=== PATIENT | female | born 1935 | race Caucasian/White ===

== ENCOUNTER 2016-10-23 17:01 | Inpatient (IN) | payer OTHER, BC ==
[~2016-10-23] VITALS: Ht 160 cm; Wt 127.7 kg
[~2016-10-23 17:01] MED LIST: ALPRAZOLAM0.25 MG PO; ASPIRIN81 M1 PO; ASPIRIN81 M2 PO; Bactrim,Septra DS 80 PO; CENTRUM ULTRA1 EAC1 PO; COUMADIN,JANTOVE5 MG PO; COUMADIN,JANTOVE6 MG PO; COUMADIN5 MG PO; COUMADIN6 MG PO; Combivent IH; Coumadin PO; DILTIAZEM 24HR120 MG PO; FUROSEMIDE40 MG PO; GLUCOPHAGE500 MG PO; LASIX40 MG PO; LETROZOLE2.5 MG PO; LIDOCAINE700 MG TD; LIDODERM700 MG TP; LIPITOR40 MG PO; LO-DOSE ASPIRIN81 M1 PO; LONITEN2.5 MG PO; LOPRESSOR100 M1 PO; LOVENOX80 MG/0.8 SC; METFORMIN HCL500 MG PO; METHIMAZOLE5 MG PO; METOPROLOL TART50 MG PO; MINOXIDIL2.5 MG PO; NITROSTAT0.4 MG SL; Nitrostat,NitroQuick SL; OXYCODONE-ACET1 EACH PO; OXYCODONE10 MG PO; TOPROL XL50 MG PO; WYGESIC,DARV1 TABLET PO; XANAX0.25 MG PO; ZITHROMAX Z-PA250 MG PO
[2016-10-23 20:41] LABS: HEMATOCRIT 34.5 % (36.0-46.0); MCH 27.6 PG (29.0-34.0); MCHC 31.6 G/DL (30.0-36.0); MCV 87.3 FL (83-99); MEAN PLAT.VOLUME 11.3 uM^3 (9.5-12.4); PLATELET COUNT 184 K/uL (156-360); RBC DIS.WIDTH-CV 14.2 % (11.8-14.6); RBC DIS.WIDTH-SD 44.5 % (39-53); RED BLOOD COUNT 3.95 M/uL (3.80-5.20)
[2016-10-23 20:50] LABS: WHITE BLOOD COUNT 16.4 K/uL (4.1-10.2)
[2016-10-23 20:53] LABS: INTER. NORMALIZED RATIO 3.1
[2016-10-23 20:56] LABS: CHLORIDE 111 mEq/L (99-109); POTASSIUM 4.7 mEq/L (3.7-5.4); SODIUM 142 mEq/L (136-147)
[2016-10-23 20:58] LABS: GLUCOSE 196 mg/dL (70-99)
[2016-10-23 21:00] LABS: ANION GAP 11 MEQ/L (2-14)
[2016-10-23 21:02] LABS: GFR ESTIMATE (CALCULATED) > 59 mL/min/
[2016-10-23 21:03] LABS: UREA NITROGEN (BUN) 18 mg/dL (9-23)
[2016-10-23] MEDS ORDERED: METFORMIN HCL500 M1 PO (22:20)
[2016-10-23] MEDS ORDERED: COUMADIN5 MG PO (22:21)
[2016-10-23] MEDS ORDERED: VITAMIN D-3 401 EACH PO (22:21)
[2016-10-23] MEDS ORDERED: B-121000 MC2 PO (22:22)
[2016-10-23] MEDS ORDERED: CENTRUM SILVER1 EAC3 PO (22:22)
[2016-10-23] MEDS ORDERED: NORCO 7.5/321 TABLET PO (22:23)
[2016-10-23] MEDS ORDERED: VESICARE5 MG PO (22:23)
[2016-10-23] MEDS ORDERED: TOPROL XL100 MG PO (22:24)
[2016-10-24 03:24] VITALS: BP 113/48
[2016-10-24 03:49] VITALS: BP 113/48
[2016-10-24 07:23] VITALS: BP 123/59
[2016-10-24 11:00] LABS: ADD MIUA? YES; BILIRUBIN NEGATIVE; BLOOD SMALL; COLOR AMBER ((YELLOW)); GLUCOSE (STRIP) NEGATIVE; KETONES 5; LEUKOCYTES NEGATIVE; NITRITE NEGATIVE; PROTEIN (STRIP) 30; SPECIFIC GRAVITY 1.023 (1.000-1.030)
[2016-10-24 11:12] LABS: BACTERIA 2+ /HPF; EPITHELIAL CELLS 1+ /HPF; MUCUS NONE SEEN /LPF; UCUL ADDED? NO; WHITE BLOOD CELLS NONE SEEN /HPF (0-5)
[2016-10-24 11:55] LABS: HEMATOCRIT 26.9 % (36.0-46.0); MCH 28.2 PG (29.0-34.0); MCHC 32.3 G/DL (30.0-36.0); MCV 87.3 FL (83-99); MEAN PLAT.VOLUME 11.1 uM^3 (9.5-12.4); PLATELET COUNT 163 K/uL (156-360); RBC DIS.WIDTH-CV 14.9 % (11.8-14.6); RBC DIS.WIDTH-SD 46.7 % (39-53); WHITE BLOOD COUNT 12.8 K/uL (4.1-10.2)
[2016-10-24 11:59] LABS: RED BLOOD COUNT 3.08 M/uL (3.80-5.20)
[2016-10-24 12:05] LABS: ANION GAP 8 MEQ/L (2-14); CHLORIDE 106 MEQ/L (99-109); POTASSIUM 4.8 MEQ/L (3.7-5.4); SAMPLE HEMOLYSIS CHECK 0; SAMPLE ICTERIC CHECK 0; SAMPLE LIPEMIA CHECK 0; SODIUM 137 MEQ/L (136-147)
[2016-10-24 12:10] LABS: GFR ESTIMATE (CALCULATED) 31 mL/min/; GLUCOSE 169 mg/dL (70-99); UREA NITROGEN (BUN) 26 mg/dL (9-23)
[2016-10-24 14:07] LABS: PROTHROMBIN TIME 21.1 (9.2-11.2)
[2016-10-24 15:36] VITALS: BP 127/57
[2016-10-24 23:23] VITALS: BP 132/59
[2016-10-25 06:05] LABS: HEMATOCRIT 22.1 % (36.0-46.0); MCH 28.6 PG (29.0-34.0); MCV 86.7 FL (83-99); MEAN PLAT.VOLUME 11.5 uM^3 (9.5-12.4); PLATELET COUNT 143 K/uL (156-360); RBC DIS.WIDTH-SD 47.6 % (39-53); RED BLOOD COUNT 2.55 M/uL (3.80-5.20); WHITE BLOOD COUNT 11.9 K/uL (4.1-10.2)
[2016-10-25 06:29] LABS: ANION GAP 7 MEQ/L (2-14); CHLORIDE 105 MEQ/L (99-109); GFR ESTIMATE (CALCULATED) 27 mL/min/; GLUCOSE 175 mg/dL (70-99); POTASSIUM 4.9 MEQ/L (3.7-5.4); SAMPLE HEMOLYSIS CHECK 0; SAMPLE ICTERIC CHECK 0; SAMPLE LIPEMIA CHECK 0; SODIUM 133 MEQ/L (136-147); UREA NITROGEN (BUN) 33 mg/dL (9-23)
[2016-10-25 07:14] VITALS: BP 130/58
[2016-10-25 07:46] LABS: INTER. NORMALIZED RATIO 1.7; PROTHROMBIN TIME 18.1 (9.2-11.2)
[2016-10-25 12:02] LABS: POINT-OF-CARE METER ID UU14188577
[2016-10-25 12:08] LABS: HEMATOCRIT 21.9 % (36.0-46.0); MCV 86.2 FL (83-99)
[2016-10-25 12:27] LABS: IRON 23 MCG/DL (35-150)
[2016-10-25 16:32] VITALS: BP 137/63
[2016-10-25 17:18] LABS: POINT-OF-CARE METER ID UU14188577
[2016-10-25 19:55] LABS: HEMATOCRIT 20.5 % (36.0-46.0)
[2016-10-25 21:10] VITALS: BP 135/47
[2016-10-25 21:25] VITALS: BP 133/63
[2016-10-25 22:25] VITALS: BP 148/69
[2016-10-25 23:25] VITALS: BP 132/85
[2016-10-26 01:25] VITALS: BP 142/66
[2016-10-26 02:25] VITALS: BP 113/60
[2016-10-26 03:25] VITALS: BP 136/65
[2016-10-26 05:41] LABS: MCV 86.1 FL (83-99)
[2016-10-26 06:01] LABS: INTER. NORMALIZED RATIO 1.7; PROTHROMBIN TIME 18.1 (9.2-11.2)
[2016-10-26 06:39] LABS: ANION GAP 7 MEQ/L (2-14); CHLORIDE 106 MEQ/L (99-109); GFR ESTIMATE (CALCULATED) 51 mL/min/; GLUCOSE 138 mg/dL (70-99); POTASSIUM 4.5 MEQ/L (3.7-5.4); SAMPLE HEMOLYSIS CHECK 0; SAMPLE ICTERIC CHECK 0; SAMPLE LIPEMIA CHECK 0; SODIUM 135 MEQ/L (136-147); UREA NITROGEN (BUN) 26 mg/dL (9-23)
[2016-10-26 08:06] VITALS: BP 146/66
[2016-10-26 11:15] LABS: HEMATOCRIT 25.7 % (36.0-46.0)
[2016-10-26 16:25] VITALS: BP 144/82
[2016-10-26 17:16] LABS: POINT-OF-CARE METER ID UU14188577
[2016-10-26 19:51] LABS: HEMATOCRIT 26.6 % (36.0-46.0); MCV 86.1 FL (83-99)
[2016-10-26 22:12] LABS: POINT-OF-CARE METER ID UU14149397
[2016-10-27 06:22] LABS: INTER. NORMALIZED RATIO 1.5; PROTHROMBIN TIME 15.2 (9.2-11.2)
[2016-10-27 06:34] LABS: EOSINOPHIL (%) 4.2 % (0-5); EOSINOPHIL COUNT 0.3 K/uL (0-0.3); HEMATOCRIT 28.9 % (36.0-46.0); IMMATURE GRANULOCYTE COUNT 0.1 K/uL; LYMPHOCYTE COUNT 1.3 K/uL (1.0-2.8); MCH 27.9 PG (29.0-34.0); MCHC 31.8 G/DL (30.0-36.0); MCV 87.6 FL (83-99); MEAN PLAT.VOLUME 11.2 uM^3 (9.5-12.4); MONOCYTE (%) 13.4 % (3-12); MONOCYTE COUNT 0.9 K/uL (0-0.8); NEUTROPHIL (%) 62.9 % (45-76); NEUTROPHIL COUNT 4.4 K/uL (1.8-6.4); NRBC (%) 0.8 /100 WBC (0-0); PLATELET COUNT 121 K/uL (156-360); RBC DIS.WIDTH-CV 15.1 % (11.8-14.6); RBC DIS.WIDTH-SD 47.7 % (39-53)
[2016-10-27 06:35] LABS: WHITE BLOOD COUNT 6.9 K/uL (4.1-10.2)
[2016-10-27 06:39] LABS: ANION GAP 6 MEQ/L (2-14); CHLORIDE 107 MEQ/L (99-109); GFR ESTIMATE (CALCULATED) > 59 mL/min/; GLUCOSE 114 mg/dL (70-99); POTASSIUM 4.4 MEQ/L (3.7-5.4); SAMPLE HEMOLYSIS CHECK 0; SAMPLE ICTERIC CHECK 0; SAMPLE LIPEMIA CHECK 0; SODIUM 137 MEQ/L (136-147); UREA NITROGEN (BUN) 19 mg/dL (9-23)
[2016-10-27 07:13] LABS: POINT-OF-CARE METER ID UU14149397
[2016-10-27 08:17] VITALS: BP 142/65
[2016-10-27 09:33] LABS: UR CREATININE CONCENTRATION 105.7 MG/DL
[2016-10-27 09:34] LABS: UR CREATININE CONCENTRATION 105.7 MG/DL
[2016-10-27 12:14] LABS: POINT-OF-CARE METER ID UU14188577
[2016-10-27 12:41] LABS: HEMATOCRIT 27.8 % (36.0-46.0); MCV 87.7 FL (83-99)
[2016-10-27 12:57] VITALS: BP 139/62
[2016-10-27 15:26] VITALS: BP 144/67
[2016-10-27 16:43] LABS: POINT-OF-CARE METER ID UU14188577
[2016-10-27 20:23] LABS: HEMATOCRIT 26.9 % (36.0-46.0); MCV 87.3 FL (83-99)
[2016-10-27 21:34] LABS: POINT-OF-CARE METER ID UU14188577
[2016-10-28 00:21] VITALS: BP 146/66
[2016-10-28 06:50] LABS: POINT-OF-CARE METER ID UU14149397
[2016-10-28 07:02] LABS: MCH 28.8 PG (29.0-34.0); MCHC 32.1 G/DL (30.0-36.0); MCV 89.5 FL (83-99); MEAN PLAT.VOLUME 11.7 uM^3 (9.5-12.4); PLATELET COUNT 133 K/uL (156-360); RBC DIS.WIDTH-CV 15.3 % (11.8-14.6); RBC DIS.WIDTH-SD 47.7 % (39-53); RED BLOOD COUNT 3.13 M/uL (3.80-5.20); WHITE BLOOD COUNT 6.8 K/uL (4.1-10.2)
[2016-10-28 07:07] LABS: INTER. NORMALIZED RATIO 1.4; PROTHROMBIN TIME 13.9 (9.2-11.2)
[2016-10-28 07:30] LABS: ANION GAP 5 MEQ/L (2-14); CHLORIDE 105 MEQ/L (99-109); GFR ESTIMATE (CALCULATED) > 59 mL/min/; GLUCOSE 129 mg/dL (70-99); POTASSIUM 4.2 MEQ/L (3.7-5.4); SAMPLE HEMOLYSIS CHECK 0; SAMPLE ICTERIC CHECK 0; SAMPLE LIPEMIA CHECK 0; SODIUM 138 MEQ/L (136-147); UREA NITROGEN (BUN) 16 mg/dL (9-23)
[2016-10-28 11:38] VITALS: BP 180/74
[2016-10-28 14:59] LABS: HEMATOCRIT 26.4 % (36.0-46.0); MCV 88.9 FL (83-99)
[2016-10-28 16:42] VITALS: BP 147/65
[2016-10-28 22:02] LABS: POINT-OF-CARE METER ID UU14149397
[2016-10-29 00:21] VITALS: BP 150/66
[2016-10-29 05:39] LABS: HEMATOCRIT 29.4 % (36.0-46.0); MCHC 31.3 G/DL (30.0-36.0); MCV 89.6 FL (83-99); MEAN PLAT.VOLUME 11.2 uM^3 (9.5-12.4); PLATELET COUNT 146 K/uL (156-360); RBC DIS.WIDTH-CV 16.1 % (11.8-14.6); RBC DIS.WIDTH-SD 47.2 % (39-53); RED BLOOD COUNT 3.28 M/uL (3.80-5.20); WHITE BLOOD COUNT 6.3 K/uL (4.1-10.2)
[2016-10-29 05:51] LABS: INTER. NORMALIZED RATIO 1.5; PROTHROMBIN TIME 15.3 (9.2-11.2)
[2016-10-29 06:11] LABS: POINT-OF-CARE METER ID UU14149397
[2016-10-29 06:17] LABS: ANION GAP 6 MEQ/L (2-14); CHLORIDE 106 MEQ/L (99-109); GFR ESTIMATE (CALCULATED) > 59 mL/min/; GLUCOSE 111 mg/dL (70-99); POTASSIUM 4.3 MEQ/L (3.7-5.4); SAMPLE HEMOLYSIS CHECK 0; SAMPLE ICTERIC CHECK 0; SAMPLE LIPEMIA CHECK 0; SODIUM 139 MEQ/L (136-147); UREA NITROGEN (BUN) 16 mg/dL (9-23)
[2016-10-29 07:30] VITALS: BP 137/63
[2016-10-29 11:46] VITALS: BP 128/59
[2016-10-29 12:53] LABS: HEMATOCRIT 27.7 % (36.0-46.0); MCV 89.6 FL (83-99)
[2016-10-29] MEDS ORDERED: CEFDINIR300 MG PO (14:42)
[2016-10-29] MEDS ORDERED: XANAX0.25 MG PO (14:45)
[2016-10-29] MEDS ORDERED: LIDOCAINE700 MG TD (14:45)
[2016-10-29] MEDS ORDERED: NORCO 7.5/321 TABLET PO (14:45)
[2016-10-29 15:37] VITALS: BP 130/58
[2016-10-29 20:41] VITALS: BP 149/63
== END 2016-10-29 20:26 | DRG 562 ==
LOC: EME → EDBD 17:01 → EDOF 10-24 00:44 → 3EAST 10-24 02:51
PROVIDERS: Hospitalist; Internal Medicine; Internal Medicine Nephrology
PROC: 30233N1 Transfusion of Nonautologous Red Blood Cells into Peripheral Vein, Percutaneous Approach (ICD-10-PCS; principal; 2016-10-26)
DX: S42.202A Unspecified fracture of upper end of left humerus, initial encounter for closed fracture (principal); S72.002A Fracture of unspecified part of neck of left femur, initial encounter for closed fracture; N17.9 Acute kidney failure, unspecified; L89.311 Pressure ulcer of right buttock, stage 1; Z68.42 Body mass index [BMI] 45.0-49.9, adult; I50.32 Chronic diastolic (congestive) heart failure; D62 Acute posthemorrhagic anemia; N39.0 Urinary tract infection, site not specified; E66.01 Morbid (severe) obesity due to excess calories; E11.9 Type 2 diabetes mellitus without complications; I48.91 Unspecified atrial fibrillation; I10 Essential (primary) hypertension; I25.10 Atherosclerotic heart disease of native coronary artery without angina pectoris; Z95.1 Presence of aortocoronary bypass graft; Z86.711 Personal history of pulmonary embolism; Z79.01 Long term (current) use of anticoagulants; Z86.718 Personal history of other venous thrombosis and embolism; E78.5 Hyperlipidemia, unspecified; E86.0 Dehydration; Z85.3 Personal history of malignant neoplasm of breast; Z96.651 Presence of right artificial knee joint; Z95.5 Presence of coronary angioplasty implant and graft; Z79.84 Long term (current) use of oral hypoglycemic drugs; Y92.012 Bathroom of single-family (private) house as the place of occurrence of the external cause; W18.30XA Fall on same level, unspecified, initial encounter; R41.0 Disorientation, unspecified
CPT/HCPCS: 70450; 71010; 72040; 72125; 72131; 72192; 73030; 80048; 80069; 81003; 82272; 82570; 82607; 82746; 82948; 83540; 84156; 84300; 84466; 85014; 85018; 85025; 85027; 85610; 85730; 86850; 86870; 86900; 86901; 86905; 86920; 94799; 99281; 99285; G0378; J1170; J1650; J1756; J1815; J3010; J3360; J7030; J7050; P9016

== ENCOUNTER 2017-03-06 06:09 | Emergency (ER) | payer OTHER, BC ==
[~2017-03-06] VITALS: Ht 162.6 cm; Wt 111.8 kg
[~2017-03-06 06:09] MED LIST changes: +B-121000 MC2 PO; +CEFDINIR300 MG PO; +CENTRUM SILVER1 EAC3 PO; +METFORMIN HCL500 M1 PO; +NORCO 7.5/321 TABLET PO; +TOPROL XL100 MG PO; +VESICARE5 MG PO; +VITAMIN D-3 401 EACH PO
[2017-03-06 07:36] LABS: ANION GAP 11 MEQ/L (2-14); CHLORIDE 104 MEQ/L (99-109); POTASSIUM 3.7 MEQ/L (3.7-5.4); SAMPLE HEMOLYSIS CHECK 0; SAMPLE ICTERIC CHECK 0; SAMPLE LIPEMIA CHECK 0; SODIUM 141 MEQ/L (136-147)
[2017-03-06 07:41] LABS: GFR ESTIMATE (CALCULATED) > 59 mL/min/; GLUCOSE 127 mg/dL (70-99); UREA NITROGEN (BUN) 24 mg/dL (9-23)
[2017-03-06 07:44] LABS: TROP-I INTERPRETATION NEGATIVE; TROPONIN-I 0.02 ng/mL (0.0-0.30)
[2017-03-06 10:38] VITALS: BP 167/80
== END 2017-03-06 10:39 | disposition home or self-care (01) ==
LOC: EME 06:09
PROVIDERS: Physician Assistant
DX: R07.89 Other chest pain (principal); Z79.01 Long term (current) use of anticoagulants; Z86.718 Personal history of other venous thrombosis and embolism; E11.9 Type 2 diabetes mellitus without complications; Z79.82 Long term (current) use of aspirin; I10 Essential (primary) hypertension; Z95.5 Presence of coronary angioplasty implant and graft; Z85.3 Personal history of malignant neoplasm of breast; Z95.1 Presence of aortocoronary bypass graft; I25.2 Old myocardial infarction; I48.91 Unspecified atrial fibrillation
CPT/HCPCS: 71020; 80048; 81003; 84484; 93005; 99281; 99285

== ENCOUNTER 2017-08-20 16:55 | Inpatient (IN) | payer OTHER, BC ==
[~2017-08-20] VITALS: Ht 160 cm; Wt 109.8 kg
[2017-08-20 17:54] LABS: HEMATOCRIT 40.2 % (36.0-46.0); MCH 30.8 PG (29.0-34.0); MCHC 32.3 G/DL (30.0-36.0); MCV 95.3 FL (83-99); PLATELET COUNT 127 K/uL (156-360); RBC DIS.WIDTH-CV 12.7 % (11.8-14.6); RBC DIS.WIDTH-SD 44.7 % (39-53); RED BLOOD COUNT 4.22 M/uL (3.80-5.20); WHITE BLOOD COUNT 4.5 K/uL (4.1-10.2)
[2017-08-20 18:02] LABS: CHLORIDE 106 mEq/L (99-109); POTASSIUM 3.9 mEq/L (3.7-5.4); SODIUM 143 mEq/L (136-147)
[2017-08-20 18:03] LABS: GLUCOSE 100 mg/dL (70-99)
[2017-08-20 18:07] LABS: CREATININE 0.8 mg/dL (0.6-1.3); GFR ESTIMATE (CALCULATED) > 59 mL/min/
[2017-08-20 18:08] LABS: UREA NITROGEN (BUN) 13 mg/dL (9-23)
[2017-08-20 18:13] LABS: TROP-I INTERPRETATION NEGATIVE; TROPONIN-I < 0.01 ng/mL (0.0-0.30)
[2017-08-20 21:39] LABS: APPEARANCE CLEAR ((CLEAR)); BILIRUBIN NEGATIVE; BLOOD SMALL; COLOR YELLOW ((YELLOW)); GLUCOSE (STRIP) NEGATIVE; KETONES NEGATIVE; LEUKOCYTES NEGATIVE; NITRITE NEGATIVE; PROTEIN (STRIP) NEGATIVE; SPECIFIC GRAVITY 1.016 (1.000-1.030)
[2017-08-20 21:44] LABS: BACTERIA NONE SEEN /HPF; EPITHELIAL CELLS RARE /HPF; MUCUS NONE SEEN /LPF; RED BLOOD CELLS 0-5 /HPF (0-5); UCUL ADDED? NO; WHITE BLOOD CELLS 0-5 /HPF (0-5)
[2017-08-20] MEDS ORDERED: COUMADIN4 MG PO (22:06)
[2017-08-20] MEDS ORDERED: COUMADIN3 MG PO (22:07)
[2017-08-20] MEDS ORDERED: LOPRESSOR100 M1 PO (22:08)
[2017-08-20] MEDS ORDERED: CHOLESTYRAMINE378 GM PO (22:12)
[2017-08-20] MEDS ORDERED: PHENERGAN-CODE120 ML PO (22:28)
[2017-08-20 22:54] LABS: INTER. NORMALIZED RATIO 2.7
[2017-08-21 01:42] LABS: MAGNESIUM 1.6 mg/dL (1.3-2.7)
[2017-08-21 01:47] LABS: PHOSPHORUS 3.2 mg/dL (2.5-4.9)
[2017-08-21 01:53] LABS: TROP-I INTERPRETATION NEGATIVE; TROPONIN-I 0.02 ng/mL (0.0-0.30)
[2017-08-21 02:00] VITALS: BP 174/77
[2017-08-21 07:43] VITALS: BP 153/69
[2017-08-21 10:54] LABS: INTER. NORMALIZED RATIO 2.3
[2017-08-21 12:07] VITALS: BP 154/67
[2017-08-21 16:12] VITALS: BP 150/72
[2017-08-21 19:44] VITALS: BP 143/65
[2017-08-21 23:37] VITALS: BP 142/65
[2017-08-22 04:00] VITALS: BP 141/63
[2017-08-22 05:58] LABS: HEMOGLOBIN 11.9 G/DL (11.9-15.5); MCH 31.1 PG (29.0-34.0); MCHC 32.2 G/DL (30.0-36.0); MCV 96.6 FL (83-99); PLATELET COUNT 111 K/uL (156-360); RBC DIS.WIDTH-CV 13.1 % (11.8-14.6); RBC DIS.WIDTH-SD 46.2 % (39-53); RED BLOOD COUNT 3.83 M/uL (3.80-5.20); WHITE BLOOD COUNT 4.1 K/uL (4.1-10.2)
[2017-08-22 06:13] LABS: INTER. NORMALIZED RATIO 2.2
[2017-08-22 06:19] LABS: CHLORIDE 103 MEQ/L (99-109); CREATININE 0.7 MG/DL (0.6-1.3); GFR ESTIMATE (CALCULATED) > 59 mL/min/; GLUCOSE 96 mg/dL (70-99); POTASSIUM 3.7 MEQ/L (3.7-5.4); SODIUM 140 MEQ/L (136-147); UREA NITROGEN (BUN) 11 mg/dL (9-23)
[2017-08-22 07:56] VITALS: BP 142/69
[2017-08-22 12:00] VITALS: BP 142/72
[2017-08-22 16:00] VITALS: BP 132/56
[2017-08-22 23:54] VITALS: BP 143/79
[2017-08-23 02:15] LABS: CREATININE 0.7 mg/dL (0.6-1.3); GFR ESTIMATE (CALCULATED) > 59 mL/min/
[2017-08-23 02:16] LABS: UREA NITROGEN (BUN) 13 mg/dL (9-23)
[2017-08-23 07:04] LABS: HEMOGLOBIN 11.9 G/DL (11.9-15.5); MCH 30.3 PG (29.0-34.0); MCHC 31.3 G/DL (30.0-36.0); MCV 96.7 FL (83-99); PLATELET COUNT 128 K/uL (156-360); RBC DIS.WIDTH-CV 12.9 % (11.8-14.6); RBC DIS.WIDTH-SD 45.9 % (39-53); RED BLOOD COUNT 3.93 M/uL (3.80-5.20); WHITE BLOOD COUNT 4.4 K/uL (4.1-10.2)
[2017-08-23 07:25] LABS: INTER. NORMALIZED RATIO 1.9
[2017-08-23 07:39] LABS: CHLORIDE 101 MEQ/L (99-109); CREATININE 0.7 MG/DL (0.6-1.3); GFR ESTIMATE (CALCULATED) > 59 mL/min/; GLUCOSE 91 mg/dL (70-99); MAGNESIUM 1.9 mg/dl (1.3-2.7); POTASSIUM 4.1 MEQ/L (3.7-5.4); SODIUM 139 MEQ/L (136-147); UREA NITROGEN (BUN) 15 mg/dL (9-23)
[2017-08-23 08:12] VITALS: BP 141/63
[2017-08-23 15:36] VITALS: BP 132/60
[2017-08-23 21:10] VITALS: BP 134/78
[2017-08-23 23:51] VITALS: BP 153/67
[2017-08-24 06:52] LABS: HEMATOCRIT 37.3 % (36.0-46.0); HEMOGLOBIN 11.8 G/DL (11.9-15.5); MCH 30.3 PG (29.0-34.0); MCHC 31.6 G/DL (30.0-36.0); MCV 95.6 FL (83-99); PLATELET COUNT 126 K/uL (156-360); RBC DIS.WIDTH-CV 12.8 % (11.8-14.6); RBC DIS.WIDTH-SD 45.2 % (39-53); WHITE BLOOD COUNT 3.9 K/uL (4.1-10.2)
[2017-08-24 06:56] LABS: INTER. NORMALIZED RATIO 1.9
[2017-08-24 07:17] LABS: CHLORIDE 101 MEQ/L (99-109); CREATININE 0.8 MG/DL (0.6-1.3); GFR ESTIMATE (CALCULATED) > 59 mL/min/; GLUCOSE 87 mg/dL (70-99); SODIUM 138 MEQ/L (136-147); UREA NITROGEN (BUN) 16 mg/dL (9-23)
[2017-08-24 07:53] VITALS: BP 135/65
[2017-08-24 16:16] VITALS: BP 147/63
[2017-08-24 23:53] VITALS: BP 148/67
[2017-08-25 06:34] LABS: INTER. NORMALIZED RATIO 1.9
[2017-08-25 06:37] LABS: BASOPHIL (%) 0.9 % (0-1); EOSINOPHIL COUNT 0.2 K/uL (0-0.3); HEMATOCRIT 37.2 % (36.0-46.0); HEMOGLOBIN 11.8 G/DL (11.9-15.5); IMMATURE GRANULOCYTE (%) 0.5 % (0.0-0.7); LYMPHOCYTE (%) 30.9 % (15-42); LYMPHOCYTE COUNT 1.3 K/uL (1.0-2.8); MCH 30.3 PG (29.0-34.0); MCHC 31.7 G/DL (30.0-36.0); MCV 95.6 FL (83-99); MONOCYTE (%) 15.6 % (3-12); MONOCYTE COUNT 0.7 K/uL (0-0.8); NEUTROPHIL (%) 47.1 % (45-76); PLATELET COUNT 130 K/uL (156-360); RBC DIS.WIDTH-CV 12.9 % (11.8-14.6); RBC DIS.WIDTH-SD 44.8 % (39-53); RED BLOOD COUNT 3.89 M/uL (3.80-5.20); WHITE BLOOD COUNT 4.2 K/uL (4.1-10.2)
[2017-08-25 06:57] LABS: CHLORIDE 101 MEQ/L (99-109); CREATININE 0.7 MG/DL (0.6-1.3); GFR ESTIMATE (CALCULATED) > 59 mL/min/; GLUCOSE 91 mg/dL (70-99); MAGNESIUM 1.9 mg/dl (1.3-2.7); SODIUM 138 MEQ/L (136-147); UREA NITROGEN (BUN) 18 mg/dL (9-23)
[2017-08-25 07:52] VITALS: BP 134/64
[2017-08-25 16:04] VITALS: BP 154/68
[2017-08-25 23:39] VITALS: BP 117/52
[2017-08-26 06:52] LABS: INTER. NORMALIZED RATIO 1.8
[2017-08-26 07:12] LABS: CHLORIDE 101 MEQ/L (99-109); CREATININE 0.8 MG/DL (0.6-1.3); GFR ESTIMATE (CALCULATED) > 59 mL/min/; GLUCOSE 87 mg/dL (70-99); SODIUM 139 MEQ/L (136-147); UREA NITROGEN (BUN) 20 mg/dL (9-23)
[2017-08-26 07:39] VITALS: BP 148/71
[2017-08-26] MEDS ORDERED: TOPROL XL200 MG PO (09:22)
[2017-08-26] MEDS ORDERED: LISINOPRIL5 MG PO (09:24)
[2017-08-26] MEDS ORDERED: COUMADIN5 MG PO (11:00)
== END 2017-08-26 16:28 | disposition home or self-care (01) | DRG 292 ==
LOC: EME 16:55 → 5SOUTH 23:48 → EDOF 23:48 → ENRESERV 23:49 → 5SOUTH 08-21 01:28
PROVIDERS: Hospitalist; Internal Medicine; Internal Medicine Cardiovascular Disease; Physician Assistant; Physician Assistant Medical
DX: I11.0 Hypertensive heart disease with heart failure (principal); I50.33 Acute on chronic diastolic (congestive) heart failure; E11.9 Type 2 diabetes mellitus without complications; R32 Unspecified urinary incontinence; N32.81 Overactive bladder; J98.11 Atelectasis; I25.10 Atherosclerotic heart disease of native coronary artery without angina pectoris; E66.9 Obesity, unspecified; E78.5 Hyperlipidemia, unspecified; I48.2 Chronic atrial fibrillation; Z79.01 Long term (current) use of anticoagulants; Z86.718 Personal history of other venous thrombosis and embolism; Z86.711 Personal history of pulmonary embolism; Z68.42 Body mass index [BMI] 45.0-49.9, adult; Z79.82 Long term (current) use of aspirin; Z85.3 Personal history of malignant neoplasm of breast; Z82.49 Family history of ischemic heart disease and other diseases of the circulatory system; Z90.710 Acquired absence of both cervix and uterus; Z95.5 Presence of coronary angioplasty implant and graft; Z95.1 Presence of aortocoronary bypass graft; I25.2 Old myocardial infarction; Z79.899 Other long term (current) drug therapy; R09.02 Hypoxemia
CPT/HCPCS: 71020; 71275; 80048; 81003; 82565; 82948; 83605; 83735; 83880; 84100; 84484; 84520; 85025; 85027; 85610; 93005; 93306; 94799; 97530 GP; 99281; 99285; J1815; J1940